=== PATIENT | female | born 1995 | race African-American/Black ===

== ENCOUNTER 2019-04-08 16:30 | Emergency (ER) | payer MEDICAID ==
[~2019-04-08] VITALS: Ht 160 cm; Wt 57.0 kg
[2019-04-08] MEDS: HYDROCODONE/ACETAMINOPHEN 5/325MG TABLET PO ONE (17:43)
[2019-04-08 18:00] VITALS: BP 116/82
== END 2019-04-08 18:28 | disposition home or self-care (01) ==
LOC: ER 18:18
DX: K08.89 Other specified disorders of teeth and supporting structures (principal); R22.0 Localized swelling, mass and lump, head
CPT/HCPCS: 99283

== ENCOUNTER 2024-10-14 01:29 | Emergency (ER) | payer MEDICAID, OTHER ==
[~2024-10-14] VITALS: Ht 162.6 cm; Wt 55.0 kg
[2024-10-14 01:37] VITALS: TEMP 36.6; O2SAT 100
[2024-10-14 03:00] LABS: BASOPHILS % 0.8 % (0.0-2.0); DIFFERENTIAL COMMENT 0; HEMATOCRIT. 35.7 % (36.0-48.0); HEMOGLOBIN. 12.3 g/dL (12.0-16.0); LYMPHOCYTES % 29.6 % (20.0-50.0); MEAN CORPUSCULAR HEMOGLOBIN 34.8 pg (28.0-32.0); MEAN CORPUSCULAR HGB CONC 34.6 g/dL (31.0-37.0); MEAN CORPUSCULAR VOLUME 100.6 fL (81.0-99.0); MONOCYTES % 8.9 % (2.0-8.0); NEUTROPHILS % 57.7 % (40.0-76.0); PLATELET 280 x1000/uL (130-400); RED BLOOD CELL COUNT 3.55 mill/uL (4.2-5.4); RED CELL DISTRIBUTION WIDTH 14.3 % (11.6-14.6); WHITE BLOOD COUNT 3.6 x1000/uL (4.5-11.0)
[2024-10-14 03:04] LABS: CHLORIDE 110 mEq/L (98-107); POTASSIUM 3.7 mEq/L (3.5-5.1); SODIUM 142 mEq/L (136-145)
[2024-10-14 03:05] LABS: CALCIUM 9.5 mg/dL (8.7-10.4); CARBON DIOXIDE 27 mEq/L (21-32)
[2024-10-14 03:10] LABS: CREATININE 0.8 mg/dL (0.6-1.0); GLUCOSE 88 mg/dL (70-105); UREA NITROGEN BLOOD 17 mg/dL (9-23)
[2024-10-14 03:12] LABS: ALANINE AMINOTRANSFERASE 12 IU/L (10-49); ALBUMIN 4.3 g/dL (3.2-4.8); ASPARTATE AMINOTRANSFERASE 19 IU/L (<34); BILIRUBIN DIRECT 0.2 mg/dL (<=3.0); BILIRUBIN TOTAL 0.6 mg/dL (0.1-1.0); PROTEIN TOTAL 7.2 g/dL (6.0-8.3)
[2024-10-14 03:19] LABS: TROPONIN I HIGH SENSITIVITY < 4 ng/L (3.0-34)
[2024-10-14 04:07] VITALS: BP 116/70; PULSE 91; RESP 16
[2024-10-14] MEDS: SODIUM CHLORIDE 0.9% 1,000 ML IV ONE (04:07)
[2024-10-14] MEDS: KETOROLAC 30MG/ML VIAL IV STA (04:07)
[2024-10-14 04:15] LABS: HCG SCREEN NEGATIVE
[2024-10-14 04:58] LABS: CLARITY URINE CLEAR (CLEAR); COLOR URINE YELLOW (YELLOW); GLUCOSE URINE NEGATIVE (NEGATIVE); KETONES URINE NEGATIVE (NEGATIVE); LEUKOCYTE ESTERASE URINE NEGATIVE (NEGATIVE); NITRITE URINE NEGATIVE (NEGATIVE); OCCULT BLOOD URINE NEGATIVE (NEGATIVE); PH URINE 6.5 (4.5-8.0); PROTEIN URINE NEGATIVE (NEGATIVE); SPECIFIC GRAVITY URINE 1.015 (1.005-1.030); UROBILINOGEN URINE 0.2 E.U./dL (0.2-1.0)
[2024-10-14 05:36] LABS: UCG SCREEN NEGATIVE
[2024-10-14] MEDS ORDERED: IBUP-2028 MT (06:18)
== END 2024-10-14 06:47 | disposition home or self-care (01) ==
LOC: ER 01:29
DX: R11.2 Nausea with vomiting, unspecified (principal); R07.9 Chest pain, unspecified; F41.9 Anxiety disorder, unspecified; J45.909 Unspecified asthma, uncomplicated; F32.A Depression, unspecified
CPT/HCPCS: 99285; 74176; 96374; 71045; 96361; 80076; 80048; 81003; 81025; 84703; 83690; 85025; 84484; 36415; 73030; 93005; J1885; J7030